=== PATIENT | female | born 1970 | race Two or more races ===

== ENCOUNTER → 2017-03-15 | Outpatient (CLI) | payer OTHER ==
[~2017-03-15] MED LIST: GADOBUTROL 7.5 MMOL/7.5 ML VIAL IV ONE
--- NOTE | 2017-03-15 12:07 | RAD ---
MRI of the Brain/IACs without and with contrast 03/15/2017 Clinical History: Vertigo over the last year. Technique: Unenhanced T1-weighted sagittal and axial and FLAIR, T2-weighted and diffusion-weighted axial images of the brain were obtained. Thin section T1-weighted axial and coronal and T2-weighted axial images through the IACs were obtained. After the intravenous administration of 6 cc of Gadavist, enhanced T1-weighted axial images of the brain were obtained. Additionally enhanced thin section T1-weighted axial and coronal images through the IACs were obtained. Findings:No previous imaging studies are available for comparison. The ventricles and sulci are within normal limits in size and configuration. Patchy and a few small scattered areas of increased signal intensity are seen within the periventricular and subcortical white matter of both cerebral hemispheres on FLAIR and T2-weighted images consistent most likely with areas of minimal small vessel ischemic disease. No extra-axial fluid collection is seen. There is no MRI evidence of acute ischemia/infarction. No abnormal area contrast enhancement is seen. MRI images through the IACs are within normal limits. No abnormal soft tissue mass or area of abnormal contrast enhancement is seen. Mild mucosal thickening in seen scattered throughout the paranasal sinuses. Normal flow voids are seen within the major vascular structures surrounding the brain parenchyma. Impression: 1. No acute parenchymal abnormality is seen. 2. Negative MRI of the IACs. Electronically signed by: Alfredo Mccord MD (03/15/2017 12:04 PM) [id number]
== END | disposition home or self-care (01) ==
LOC: MRI 09:54
PROVIDERS: ATTEND Family Medicine
DX: R42 Dizziness and giddiness (principal)
CPT/HCPCS: 70553; A9585